=== PATIENT | male | born 1995 | race African-American/Black ===

== ENCOUNTER 2022-06-28 12:36 | Emergency (ER) | payer BC, SELFPAY ==
--- NOTE | ~2022-06-28 | XR_ITS ---
EXAMINATION: XR knee RT min 4V DATE: 06/28/2022 13:26 INDICATION: Right knee pain and swelling. Fall. TECHNIQUE: 4 views of right knee were obtained. COMPARISON: None. FINDINGS: Bone alignment is normal. No fracture. There is mild osteoarthritis of medial and patellofe moral compartments characterized by tiny osteophytes. No joint space narrowing. There is a small knee joint effusion. IMPRESSION: 1. Mild right knee osteoarthritis. 2. Small right knee joint effusion. Reviewed, dictated and finalized at location A. ENGINEER
[2022-06-28 12:47] VITALS: BP 122/58; PULSE 86; RESP 12; TEMP 37.1; O2SAT 100
--- NOTE | 2022-06-28 13:08 | ED.LOWEXIN ---
HPI - Extremity Injury (Lower) General Chief Complaint: Extremity Injury, Lower Stated Complaint: right knee pain Time Seen by Provider: 06/28/22 13:08 Source: patient Mode of arrival: ambulatory Limitations: no limitations History of Present Illness HPI Narrative: 26-year-old male presented for complaint of right knee pain after a fall 2 days ago. He states he was running when he fell, and has an abrasion to the right knee. Rates pain 7/10. Pain is around the entire knee and the back of the knee; worse with bending the knee. Also with abrasion to the right elbow and right hip. Denies difficulty walking. Denies numbness, tingling, weakness of the extremities. He has taken Tylenol for symptoms. He denies hitting his head or loss of consciousness. Hx schizophrenia, states he is off meds and restarting them next week. Related Data Allergies Allergy/AdvReac Type Severity Reaction Status Date / Time No Known Allergies Allergy Verified 06/28/22 12:51 Review of Systems Review of Systems: CONSTITUTIONAL: Denies body aches, fever, chills EYES: Denies visual changes ENT: Denies rhinorrhea, congestion CARDIOVASCULAR: Denies chest pain, palpitations, or edema. RESPIRATORY: Denies cough or dyspnea. GASTROINTESTINAL: Denies abdominal pain, nausea, vomiting, or diarrhea. SKIN: Denies rash, itching, reports wounds per HPI MUSCULOSKELETAL: per HPI NEUROLOGIC: Denies headache, numbness, tingling, or weakness. All systems reviewed & are unremarkable except as noted in HPI and below PMFSH Past Medical History Medical History Schizophrenia Comments At time of signature, I have reviewed and agree with nursing past medical, surgical, social and family history unless otherwise noted. Please see nursing chart for further information. There is no relevant family history pertinent to the presenting complaint Exam Narrative: GENERAL: Well-appearing HEAD: Normocephalic, atraumatic. EYES: PERRLA, conjunctivae clear NECK: Supple. CHEST: Speaks in full sentences. No respiratory distress. HEART: Regular rate and rhythm. Normal and equal peripheral pulses. EXTREMITIES: Right LE has normal strength and sensation, Right knee with abrasion approx 1.5cm to mid patella no active drainage or surrounding erythema; mild swelling and tenderness to bilateral aspects of patella and posteriorly, slightly limited range of motion to knee, endorses pain with flexion; able to tolerate full flexion. No ecchymosis, No obvious deformity; alignment normal, pulse palpable and equal bilaterally, skin warm, dry, pink. Capillary refill less than 3 seconds. SKIN: Warm, dry, dry abrasion to right anterior hip, right elbow and right knee; no active drainage, appears healing; approx 4cm Course Course Emergency Course: Patient is aware of diagnosis, understands and agrees to treatment plan. Anticipatory guidance given. Patient agrees to follow-up as directed and is aware of reasons to seek care at the emergency department. Portions of this record may have been created with voice recognition software Level of Care: Express Care Visit Vital Signs Vital signs: Vital Signs Temperature 98.8 F 06/28/22 12:47 Pulse Rate 86 06/28/22 12:47 Respiratory Rate 12 06/28/22 12:47 Blood Pressure 122/58 L 06/28/22 12:47 Pulse Oximetry 100 06/28/22 12:47 Oxygen Delivery Room Air 06/28/22 12:47 Temperature 98.8 F 06/28/22 12:47 Pulse Rate 86 06/28/22 12:47 Respiratory Rate 12 06/28/22 12:47 Blood Pressure 122/58 L 06/28/22 12:47 Pulse Oximetry 100 06/28/22 12:47 Oxygen Delivery Room Air 06/28/22 12:47 Reviewed MDM - Extremity Injury (Lower) MDM Narrative Medical decision making narrative: Ice pack applied to right knee. Results of x-ray reviewed with patient. ASHLEY applied. Dressings applied to knees, right hip and right elbow. Advised supportive measures and signs/sympt
== END 2022-06-28 14:06 | disposition home or self-care (01) ==
PROVIDERS: Emergency Provider Nurse Practitioner Family
DX: M25.561 Pain in right knee (principal)
CPT/HCPCS: 73564; 99203; G0463

== ENCOUNTER 2022-12-14 01:34 | Emergency (ER) | payer OTHER, BC, SELFPAY ==
[2022-12-14 01:39] VITALS: BP 126/76; PULSE 96; RESP 18; TEMP 36.9; O2SAT 100
== END 2022-12-14 02:17 | disposition left against medical advice (07) ==
LOC: ANHED 01:53
PROVIDERS: Emergency Provider Family Medicine
DX: R51.9 Headache, unspecified (principal)
CPT/HCPCS: 99199